=== PATIENT | female | born 1945 | race Caucasian/White ===

== ENCOUNTER → 2017-08-04 | Outpatient (CLI) | payer OTHER, BC ==
[2017-08-04 14:07] LABS: HEMOGLOBIN A1C 5.7 % (4.5-5.6)
[2017-08-04 14:13] LABS: ALBUMIN 3.9 gm/dl (3.4-5.0); ALT/SGPT 42 U/L (12-78); BLOOD UREA NITROGEN 11 mg/dl (7-18); CALCIUM 9.7 mg/dl (8.5-10.1); CARBON DIOXIDE 28 mmol/L (21-32); CHOLESTEROL 179 mg/dl (0-200); CREATININE 0.67 mg/dl (0.60-1.20); GLUCOSE 112 mg/dl (70-99); POTASSIUM 3.9 mmol/L (3.5-5.1); SODIUM 138 mmol/L (136-145)
[2017-08-04 14:16] LABS: ALKALINE PHOSPHATASE 74 U/L (45-117); AST/SGOT 32 U/L (15-37); LDL CHOLESTEROL CALCULATED 66 mg/dl; TOTAL PROTEIN 7.6 gm/dl (6.4-8.2)
== END | disposition home or self-care (01) ==
LOC: C.LABBC 10:36
PROVIDERS: ATTEND Nurse Practitioner Adult Health
DX: Z00.00 Encounter for general adult medical examination without abnormal findings (principal); I10 Essential (primary) hypertension; R73.01 Impaired fasting glucose